=== PATIENT | male | born 1985 | race Hispanic/Latino ===

== ENCOUNTER 2023-08-22 04:39 | Emergency (ER) | payer SELFPAY ==
[2023-08-22] VITALS (17 sets, daily range): BP systolic 89–123; BP diastolic 44–81
[2023-08-22] MEDS: NSS 1000 IV ×2 (04:55→05:52)
[2023-08-22 05:00] LABS: % Basophils 0.4 % (0-2); % Eosinophils 3.8 % (0-6); % Immature Granulocytes 0.3 % (0-0.5); % Lymphocytes 29.1 % (20.5-51.1); % Monocytes 3.8 % (1.7-9.3); % Neutrophils 62.6 % (42.2-75.2); Absolute Eosinophils 0.3 10^3/uL (0-0.7); Absolute Monocytes 0.3 10^3/uL (0.1-0.6); Absolute Neutrophils 4.3 10^3/uL (1.4-6.5); Hematocrit 44.6 % (39.0-52.0); Hemoglobin 14.7 g/dL (13.0-18.0); Mean Corpuscular Hgb 28.3 pg (27.0-31.0); Mean Corpuscular Volume 85.8 fL (80.0-94.0); Mean Platelet Volume 9.9 fL (7.4-10.4); Nucleated Red Blood Cells % 0 % (-); Platelet Count 252 10^3/uL (130-400); Red Cell Dist. Width 14.1 % (11.5-14.5); White Blood Cell Count 6.9 10^3/uL (4.8-10.8)
[2023-08-22 05:24] LABS: ALT (SGPT) 23 U/L (0-50); AST (SGOT) 31 U/L (17-59); Albumin 4.6 g/dl (3.5-5.0); Alcohol 221 mg/dl; Alkaline Phosphatase 91 U/L (38-126); Blood Urea Nitrogen 8 mg/dl (9-20); Calcium 8.6 mg/dl (8.4-10.2); Carbon Dioxide 22 mmol/L (22-30); Chloride 109 mmol/L (98-107); Glucose 161 mg/dl (70-99); Potassium 4.1 mmol/L (3.5-5.1); Sodium 142 mmol/L (135-145); Total Bilirubin 0.2 mg/dl (0.2-1.3); Total Protein 7.7 g/dl (6.3-8.2); eGFR > 60.00
[2023-08-22 06:33] LABS: Amphetamines Negative (Negative); Barbiturates Negative (Negative); Benzodiazepines Negative (Negative); Buprenorphine Negative (Negative); Cocaine Positive (Negative); Marijuana Negative (Negative); Methadone Negative (Negative); Methamphetamines Negative (Negative); Opiates Negative (Negative); Phencyclidine Negative (Negative); Tricyclic Antidepressants Negative (Negative)
[2023-08-22 06:52] LABS: Fentanyl, Urine Negative (Negative)
--- NOTE | 2023-08-22 07:08 | ED.GENMED ---
History of Present Illness
<Alexandr Guzman, DO - Last Filed: 08/22/23 07:12>
General
Chief Complaint: Alcohol Problem
Source: patient and ambulance crew
Exam Limitations: none
Time Seen by Provider: 08/22/23 04:45
Nursing documentation reviewed up to this point in time: agreed with
Travel History
Have you had any contact with someone who has COVID-19?: Unable to Answer
Do you have any symptoms of coronavirus? Fever > 100 degrees, chills, cough, shortness of breath, sore throat, loss of taste or smell, muscle aches, or headache?: Unable to Answer
History of Present Illness
History of Present Illness:
35-year-old male presents emergency department via EMS after being found intoxicated. He has no ID, and is minimally cooperative. Optical Mechanic line was unable to understand him. He does follow commands.
Past History
<Alexandr Guzman, DO - Last Filed: 08/22/23 07:12>
Social History
Alcohol: Binge drinker
Drug: None
Review of Systems
<Alexandr Guzman DO - Last Filed: 08/22/23 07:12>
Review of Systems
Allergies reviewed?: Yes
All Other Systems: Not applicable
ABD/GI: Reports vomiting
Phy Exam
<Alexandr Guzman, DO - Last Filed: 08/22/23 07:12>
Physical Exam
Physical Exam:
Physical Exam
General: no apparent distress, not acutely ill
Neck: supple. no meningeal signs. normal posterior pharynx
Heart: s1/s2 regular rate and rhythm, no murmur. equal radial
pulses.
HEENT: Pupils equal round reactive to light, EOMI
Lungs: no acute respiratory distress. clear bilaterally
Abdomen: normal bowel sounds. not tender. no CVAT
Neuro: alert responds to name. no focal neurological deficits cranial nerves II through XII intact
Skin: no rash
Psychiatric: well kept. interactive and cooperative
Extremities: no edema. no calf tenderness. negative homans. good distal pulses
Scores
<Nayan Johnston MD - Last Filed: 08/22/23 13:44>
Withdrawal Assessment of Alcohol
Withdrawal Assessment Completed?: Yes
Nausea and Vomiting: No nausea and no vomiting
Tactile Disturbances: None
Tremor: No tremor
Auditory Disturbances: Not present
Paroxysmal Sweats: No sweat visible
Visual Disturbances: Not present
Anxiety: No anxiety, at ease
Headache, Fullness in Head: Not present
Agitation: Normal activity
Orientation and clouding of sensorium: Oriented and can do serial additions
Total CIWA Score: 0
Alcohol Withdrawal Medication Recommendation: Equal to MSAS Score 0-4. Monitor & re-assess q2hrs, NO MEDICATION NEEDED
Course
<Alexandr Guzman DO - Last Filed: 08/22/23 07:12>
Orders/Labs/Results
Orders:
Orders
08/22/23 04:45
Cardiac Monitoring- Treatment ONCE
IV Insert/Care/Rem.- Treatment PRN
Pulse Ox/cont/shift [RESP] Stat
Quantity: 1
08/22/23 04:46
CT Head W/o Iv Contrast Urgent
Comment:
Reason For Exam: altered mental status
08/22/23 04:53
Alcohol Urgent
Complete Blood Count/With Diff Urgent
Comprehensive Metabolic Panel Urgent
08/22/23 05:00
0.9% Sodium Chloride 1000 ml [Nss] 1,000 ml IV 2,000 mls/hr
08/22/23 05:58
Fentanyl, Urine Urgent
Urine Drug Abuse Screen Urgent
Date Specimen was Collected: 08/22/23
Time Specimen was Collected: 05:55
Abnormal Lab Results
08/22/23 08/22/23
04:53 05:58
Chloride 109 H mmol/L
(98-107)
BUN 8 L mg/dl
(9-20)
Glucose 161 H mg/dl
(70-99)
Urine Cocaine Screen Positive H
(Negative)
08/22/23 04:53
08/22/23 04:53
Vital Signs
Initial and Last Documented VS:
Initial Vital Signs
Temp Pulse Resp BP Pulse Ox
97.7 F 72 16 89/54 100
08/22/23 04:49 08/22/23 04:49 08/22/23 04:49 08/22/23 04:49 08/22/23 04:49
Last Documented Vital Signs
Temp Pulse Resp BP Pulse Ox
97.7 F 78 16 121/74 98
08/22/23 04:49 08/22/23 11:54 08/22/23 11:54 08/22/23 11:54 08/22/23 11:54
<Nayan Johnston MD - Last Filed: 08/22/23 13:44>
Orders/Labs/Results
Orders:
Orders
08/22/23 04:45
Cardiac Monitoring- Treatment ONCE
IV Insert/Care/Rem.- Treatment PRN
Pulse Ox/cont/shift [RESP] Stat
Quantity: 1
08/22/23 04:46
CT Head W/o Iv Contrast Urgent
Comment:
Reason For Exam: altered mental status
08/22/23 04:53
Alcohol Urgent
Complete Blood Count/With Diff Urgent
Comprehensive Metabolic Panel Urgent
08/22/23 05:00
0.9% Sodium Chloride 1000 ml [Nss] 1,000 ml IV 2,000 mls/hr
08/22/23 05:58
Fentanyl, Urine Urgent
Urine Drug Abuse Screen Urgent
Date Specimen was Collected: 08/22/23
Time Specimen was Collected: 05:55
Abnormal Lab Results
08/22/23 08/22/23
04:53 05:58
Chloride 109 H mmol/L
(98-107)
BUN 8 L mg/dl
(9-20)
Glucose 161 H mg/dl
(70-99)
Urine Cocaine Screen Positive H
(Negative)
08/22/23 04:53
08/22/23 04:53
Vital Signs
Initial and Last Documented VS:
Initial Vital Signs
Temp Pulse Resp BP Pulse Ox
97.7 F 72 16 89/54 100
08/22/23 04:49 08/22/23 04:49 08/22/23 04:49 08/22/23 04:49 08/22/23 04:49
Last Documented Vital Signs
Temp Pulse Resp BP Pulse Ox
97.7 F 78 16 121/74 98
08/22/23 04:49 08/22/23 11:54 08/22/23 11:54 08/22/23 11:54 08/22/23 11:54
<Aelxandr Guzman, DO - Last Filed: 08/22/23 07:12>
MDM/Problems Addressed
Differential Diagnosis Includes:
Intracranial hemorrhage, alcohol intoxication
MDM/Problems Addressed:
35-year-old male with alcohol intoxication, no metabolic derangements, no neurologic deficits. Observed patient with plans to discharge.
<Alexandr Guzman, DO - Last Filed: 08/22/23 07:12>
*Radiology
Radiology exam reviewed: radiology read reviewed (CT head no acute findings)
*Pulse Oximetry
Patient hypoxic: no
*EKG
Interpreted by ED Provider?: NA
*Timber Framer Helper Interpretation
Rate: normal
Interpretation: normal
Heart Rate: 78
Rhythm: sinus
*Critical Care Note
Total Time (30-74mins, 75-104mins- exclusive of procedures): 30
comment:
He is critical care statement: A total of 30 minutes of critical care time was provided for this patient. This includes management of unstable vital signs, evaluation of the patient at bedside, reviewing the patient's pertinent medical records,
discussion with consultants, review of old EKGs and review of pertinent medical records. This time with separate from time utilized to perform the aforementioned documented procedures
<Nayan Johnston MD - Last Filed: 08/22/23 13:44>
Update Note
Update Note:
Pt is alert/awake/oriented, and ambulating with steady gait, at time of discharge, to the care of his friend.
ED Attending Note
<Alexandr Guzman DO - Last Filed: 08/22/23 07:12>
-
Portions of this chart may have been created with voice recognition software.� Occasional wrong word or��sound alike� substitutions may have occurred due to the inherent limitations of voice recognition software.
Discharge Plan
Departure
Patient Disposition: Home (Routine Discharge)
Date of Disposition: 08/22/23
Time of Disposition: 07:11
Patient with high blood pressure during this ER visit?: No
Discharge Problem:
Alcohol intoxication
Instructions: Alcohol Use Disorder (DC)
Prescriptions:
No Action
Unobtainable
0
Interventions
Interventions:
*Risk Screen - Suicide Last Done: 08/22/23 04:49
*General Assessment Last Done: 08/22/23 04:49
*Neglect/Abuse Screening Last Done: 08/22/23 04:49
ED- Fall Risk Assessment Last Done: 08/22/23 04:49
*ED COVID-19 Vaccine History Last Done: 08/22/23 04:49
*Nursing Disposition Last Done: 08/22/23 11:54
ED- Neurological Assessment Last Done: 08/22/23 05:04
ED-Psychological Assessment Last Done: 08/22/23 05:04
Discharge Date and Time
Discharge Date/Time: 08/22/23 11:54
Print Language: CENTRAL AFRICAN
== END 2023-08-22 11:54 | disposition home or self-care (01) ==
LOC: EMR 04:39
PROVIDERS: EMERGENCY PHYSICIAN Emergency Medicine
DX: F10.129 Alcohol abuse with intoxication, unspecified (principal)
CPT/HCPCS: 99284; 96360; 70450; 80053; 80306; 80307; 82077; 85025